=== PATIENT | female | born 1955 | race Caucasian/White ===

== ENCOUNTER 2019-01-20 10:48 | Emergency (ER) | payer MEDICARE, BC ==
[2019-01-20] MEDS ORDERED: ACETAMINOPHEN 325 MG TAB PO ONE (11:21)
[2019-01-20] MEDS ORDERED: MECLIZINE 25 MG TABLET PO ONE (11:21)
[2019-01-20] MEDS ORDERED: 0.9 % SODIUM CHLORIDE 1,000 ML BAG IV ONE (11:22)
--- NOTE | 2019-01-20 11:48 | Emergency Department Record ---
History of Present Illness - General Chief Complaint: Dizziness Stated Complaint: DIZZY Time Seen by Provider: 01/20/19 10:51 Source: Patient Mode of Arrival: Ambulatory Limitations: No limitations - History of Present Illness Initial Comments: The patient is here due to developing lightheadedness after taking a shower about 2 hours ago. The symptoms are mainly when she bends over. She denies any CP, SOB, NICHOLE, weakness, balance issues or speech problems. The symptoms also seem to be worse with moving her head at times. The patient states she has had similar issues in the past with low potassium. MD Complaint: Lightheadedness Onset/Timin -: Minutes(s) Timing: Sudden onset Description: Lightheadedness, Near-syncope, Other History of Same: Yes (wity potassium issues) - Norma Coma Scale Eye Response: (4) Open spontaneously Motor Response: (6) Obeys commands Verbal Response: (5) Oriented Norma Total: 15 - Related Data Home Medications Medication Instructions Recorded Confirmed Last Taken Alprazolam [Xanax] 0.5 mg PO ASDIR 01/20/19 01/20/19 01/19/19 Previous Rx's Medication Instructions Recorded Meclizine HCl [Antivert] 25 mg PO Q8H #21 tablet 01/20/19 Allergies Allergy/AdvReac Type Severity Reaction Status Date / Time ibuprofen [From Motrin] Allergy Intermediate body Verified 01/20/19 11:12 swelling latex Allergy Mild rash Verified 01/20/19 11:12 Travel Screening - Travel/Exposure Within Last 30 Days Have you traveled within the last 30 days?: No - Travel/Exposure Within Last Year Have you traveled outside the [place] in the last year?: No - Additonal Travel Details Have you been exposed to anyone with a communicable illness?: No - Travel Symptoms Symptom Screening: Headache Review of Systems Constitutional: Denies: Chills, Fever Eyes: Denies: Eye discharge ENT: Denies: Congestion, Throat pain Respiratory: Denies: Cough Cardiovascular: Denies: Arrhythmia, Chest pain Endocrine: Denies: Fatigue Gastrointestinal: Denies: Nausea Genitourinary: Denies: Dysuria Musculoskeletal: Denies: Arthralgia Neurological: Denies: Abnormal gait Past Medical History - SOCIAL HISTORY Smoking Status: Never smoker Alcohol Use: Rare Drug Use: None - RESPIRATORY Hx Respiratory Disorders: Yes Hx Asthma: Yes Hx Sleep Apnea: Yes Hx of CPAP: No - CARDIOVASCULAR Hx Cardio Disorders: Yes Hx Edema: Yes - NEURO Hx Neuro Disorders: Yes Hx Dizziness: Yes (low potassium) - GI Hx GI Disorders: Yes Hx Abdominal Pain: Yes Hx Diverticulitis: Yes Hx Reflux: Yes Hx Irritable Bowel: Yes Hx of Polyps: Yes - Hx Genitourinary Disorders: Yes Hx Kidney Stones: Yes - ENDOCRINE Hx Endocrine Disorders: No - MUSCULOSKELETAL Hx Musculoskeletal Disorders: Yes - PSYCH Hx Psych Problems: Yes Hx Anxiety: Yes Hx Depression: Yes - HEMATOLOGY/ONCOLOGY Hx Hematology/Oncology Disorders: No Family Medical History Any Significant Family History?: No Hx Anxiety: Mother Hx Cancer: Father, Grandparents Hx Dementia: Mother Hx Heart Disease: Father, Mother Hx HTN: Father Hx Stroke: Father Physical Exam - General General Appearance: Alert, Oriented x3, Cooperative, No acute distress - Head Head exam: Atraumatic, Normocephalic, Normal inspection - Eye Eye exam: Normal appearance, PERRL, EOMI. negative: Nystagmus - ENT ENT exam: Normal exam, Mucous membranes moist, Normal external ear exam, Normal orophraynx, TM's normal bilaterally Throat exam: Normal inspection. negative: Tonsillar erythema, Tonsillar exudate - Neck Neck exam: Normal inspection, Full ROM. negative: Tenderness - Respiratory Respiratory exam: Normal lung sounds bilaterally. negative: Respiratory distress - Cardiovascular Cardiovascular Exam: Regular rate, Normal rhythm, Normal heart sounds - GI/Abdominal GI/Abdominal exam: Soft, Normal bowel sounds. negative: Tenderness - Extremities Extremities exam: Normal inspection, Full ROM, Normal capillary refill. negative: Tenderness - Neurological Neurological exam: Alert, CN II-XII intact, Normal gait, Oriented X3, Reflexes normal, Other (Neg Drift and Rhomberg exams. The patient presently has a normal Neuro. exam.). negative: Abnormal gait, Altered, Motor sensory deficit - Psychiatric Psychiatric exam: negative: Anxious, Depressed - Skin Skin exam: negative: Rash Course Vital Signs 01/20/19 10:55 Temperature 98.3 F Pulse Rate 66 Respiratory 20 Rate Blood Pressure 119/59 Pulse Ox 99 - Reevaluation(s) Reevaluation #1: The patient is doing better at this time. She denies any new symptoms and states she is feeling better. She is able to get up and walk with normal balance and strength. The patient denies any spinning sensation or weakness at this time. 01/20/19 12:25 Reevaluation #2: I did discuss the head CT report with the patient and the need for F/U. 01/20/19 13:34 Medical Decision Making - Data Complexity MDM Data: Labs Ordered and/or Reviewed, X-Ray Ordered and/or Reviewed, EKG Ordered and/or Reviewed - Lab Data Result diagrams: 01/20/19 11:49 01/20/19 11:49 - EKG Data -: EKG Interpreted by Me EKG: No Acute Changes (Neg for any ischemia or arrythmia's.) - Radiology Data Radiology results: Report reviewed (Head CT: Neg for acute intracranial abnormality.) Disposition Disposition: Discharge Clinical Impression: Lightheadedness Disposition: Home, Self-Care Condition: (2) Stable Instructions: Dizziness (ED) Additional Instructions: Please continue your regular medicines and use the Antivert for dizziness. Please use Flonase for your nasal drainage and see your family doctor on Wednesday. Return to the ER for any worsening symptoms or any problems. Prescriptions: Meclizine HCl [Antivert] 25 mg PO Q8H #21 tablet Forms: Patient Portal Access Time of Disposition: 13:36 Quality - Quality Measures Quality Measures: N/A - Blood Pressure Screening View Details: Yes Does Patient Have Any of the Following: No Blood Pressure Classification: Normal BP Reading Systolic Measurement: 113 Diastolic Measurement: 45 Screening for High Blood Pressure: < Normal BP, F/U Not Required > [G8783]
[2019-01-20 11:54] LABS: BASO % 1.4 % (0-6); EOS % 2.3 % (0-6); GRAN % 50.6 % (47-80); HEMATOCRIT 39.7 % (35.0-47.0); HEMOGLOBIN 12.9 gm/dl (11.6-16.0); MEAN CORPUSCULAR HEMOGLOBIN 29.3 pg (27-33); MEAN CORPUSCULAR HGB CONC 32.5 g/dl (32-36); MEAN PLATELET VOLUME 10.5 fl (7.4-10.4); MONO % 12.7 % (0-9); PLATELET COUNT 303 K/uL (130-400); RED BLOOD COUNT 4.41 M/uL (3.80-5.40); RED CELL DISTRIBUTION WIDTH 12.2 % (11.5-14.5); WHITE BLOOD COUNT W/O DIFF 5.1 K/uL (4.2-12.2)
[2019-01-20 12:05] LABS: BLOOD UREA NITROGEN 15 mg/dL (8-23)
[2019-01-20 12:06] LABS: CREATININE 0.9 mg/dL (0.5-0.9); EST GLOMERULAR FILTRATION RATE > 60 mL/min; TOTAL PROTEIN 7.1 g/dL (6.6-8.7)
[2019-01-20 12:08] LABS: GLUCOSE,RANDOM 85 mg/dL (74-109)
[2019-01-20 12:11] LABS: ALB/GLOB RATIO 1.6 (1.1-1.8); ALBUMIN 4.4 g/dL (4.0-5.0); ALKALINE PHOSPHATASE 93 U/L (35-104); ALT/SGPT 17 U/L (<33); AST/SGOT 21 U/L (10.0-35.0)
--- NOTE | 2019-01-22 18:42 | CT SCAN REPORT ---
EXAM: CT SCAN HEAD WO CONTRAST HISTORY: VERTIGO WITH NEAR SYNCOPE. HEADACHES. HYPERTENSION. TECHNIQUE: Routine noncontrast CT of the brain. COMPARISON: None. FINDINGS: The ventricles and subarachnoid spaces are normal in size. No area of abnormally increased or decreased attenuation is noted throughout the brain substance. The dixon-white interfaces are distinct. No abnormal extraaxial fluid collection. No skull abnormality. There is opacification of a single expanded posterior right ethmoid air cell consistent with retention cyst/mucocele. The paranasal sinuses and mastoid air cells are otherwise clear. The orbits as visualized are unremarkable with the exception of postcataract surgery changes on the left. IMPRESSION: 1. NEGATIVE NONCONTRAST CT APPEARANCE OF THE BRAIN. 2. OPACIFICATION OF A SINGLE MILDLY EXPANDED POSTERIOR RIGHT ETHMOID AIR CELL. THIS MAY RELATE TO MUCOCELE. JOB NUMBER: [id number] MTDD
== END 2019-01-20 13:56 | disposition home or self-care (01) ==
LOC: ER 10:48
DX: R42 Dizziness and giddiness (principal); R51 Headache; I10 Essential (primary) hypertension
CPT/HCPCS: 70450; 80053; 85025; 93005; 93010; 96360; 96361; 99284; J7030